=== PATIENT | female | born 1955 | race Asian ===

== ENCOUNTER 2020-05-09 07:37 | Outpatient (CLI) | payer OTHER | END 2020-05-09 07:38 | disposition home or self-care (01) | LOC: CSHULT 07:37 | PROVIDERS: ATTEND Internal Medicine Gastroenterology | DX: B19.10 Unspecified viral hepatitis B without hepatic coma (principal); R93.2 Abnormal findings on diagnostic imaging of liver and biliary tract; K76.89 Other specified diseases of liver; N28.1 Cyst of kidney, acquired | CPT/HCPCS: 93975 ==